=== PATIENT | male | born 1940 | race Caucasian/White ===

== ENCOUNTER 2018-06-07 07:24 | Inpatient (IN) ==
[2018-06-07] MEDS ORDERED: NITROGLYCERIN SL 0.4 MG TABLET SL PRN (09:47)
[2018-06-07 10:43] LABS: Basophils # 0.1 10*3/uL (0.0-0.2); Basophils % 0.7 % (0.0-0.8); Eosinophils # 0.1 10*3/uL (0.0-0.87); Hemoglobin 13.7 GM/DL (14.0-18.0); Immature Granulocytes % 0.1 %; Immature Granulocytes Absolute 0.01 #; Lymphocytes # 2.4 10*3/uL (1.4-4.0); Lymphocytes % 33.6 % (21.2-54.2); Mean Corpuscular HGB Conc 33.4 GM/DL (32-36); Mean Corpuscular Volume 92.1 FL (87-102); Mean Platelet Volume 9.4 FL (9.6-12.0); Monocytes % 7.5 % (1.7-12.7); Neutrophils % 56.1 % (38.7-73.9); Platelet Count 148 T/CUMM (130-400); Red Blood Count 4.45 MC/CUMM (3.8-5.5); Red Cell Distribution Width 13.5 % (9.3-17.3)
[2018-06-07 11:11] LABS: CKMB % 5.5 %
[2018-06-07 11:15] LABS: Troponin I 2.65 NG/ML (0.00-0.045)
[2018-06-07 11:17] LABS: Calcium 8.8 MG/DL (8.5-10.1); Osmolality,Calculated 286.1 MOS/KG (273-304); Thyroid Stimulating Hormone 1.3 uIU/ml (0.358-3.74)
[2018-06-07] MEDS ORDERED: TICAGRELOR 90 MG TABLET PO ONE (11:59)
[2018-06-07] MEDS: PANTOPRAZOLE 40 MG TABLET PO SCH (12:20)
[2018-06-07] MEDS: ASPIRIN EC 81 MG TABLET PO SCH (12:20)
[2018-06-07] MEDS: ENOXAPARIN 80 MG/0.8 ML SYRINGE SUBCUT SCH (12:20)
[2018-06-07 13:29] LABS: Troponin I 4.98 NG/ML (0.00-0.045)
[2018-06-07 14:49] LABS: Apearance,Urine CLEAR (Clear); Bilirubin,Urine Negative (Negative); Blood, Urine Negative (Negative); Glucose,Urine (UA) Negative (Negative); Ketones,Urine Negative (Negative); Mucus,Urine Occasional /LPF (Occasional); Nitrite,Urine Negative (Negative); Protein,Urine Negative; RBC,Urine 1 /HPF (0-4); Urine Color Yellow (Yellow); Urine Specific Gravity 1.009 (1.001-1.035); Urine Urobilinogen < 2.0 EU/DL (0.2-1.0); WBC,Urine <1 /HPF (0-6)
[2018-06-07 16:13] LABS: CKMB % 5.6 %
[2018-06-07 16:16] LABS: Troponin I 6.23 NG/ML (0.00-0.045)
[2018-06-07] MEDS: TICAGRELOR 90 MG TABLET PO SCH (20:40)
[2018-06-07] MEDS: ATORVASTATIN 40 MG TABLET PO SCH (20:40)
[2018-06-08] MEDS: ENOXAPARIN 80 MG/0.8 ML SYRINGE SUBCUT SCH (00:40)
[2018-06-08] MEDS ORDERED: SODIUM CHLORIDE 0.9% 1,000 ML IV SCH (03:00)
[2018-06-08 04:39] LABS: Basophils % 0.7 % (0.0-0.8); Eosinophils # 0.2 10*3/uL (0.0-0.87); Eosinophils % 3.3 % (0.00-10.9); Hemoglobin 13.3 GM/DL (14.0-18.0); Immature Granulocytes % 0.4 %; Immature Granulocytes Absolute 0.02 #; Lymphocytes # 1.8 10*3/uL (1.4-4.0); Lymphocytes % 33.1 % (21.2-54.2); Mean Corpuscular HGB Conc 32.4 GM/DL (32-36); Mean Platelet Volume 9.6 FL (9.6-12.0); Monocytes % 8.2 % (1.7-12.7); Neutrophils % 54.3 % (38.7-73.9); Platelet Count 126 T/CUMM (130-400); Red Blood Count 4.36 MC/CUMM (3.8-5.5); Red Cell Distribution Width 13.6 % (9.3-17.3); White Blood Count 5.5 T/CUMM (4-12)
[2018-06-08 04:50] LABS: Calcium 8.7 MG/DL (8.5-10.1); Osmolality,Calculated 289.8 MOS/KG (273-304)
[2018-06-08] MEDS ORDERED: diphenhydrAMINE CAP 25 MG CAPSULE PO ONE (06:30)
[2018-06-08] MEDS ORDERED: DIAZEPAM 5 MG TABLET PO ONE (06:30)
[2018-06-08] MEDS: ASPIRIN EC 81 MG TABLET PO SCH ×2 (06:36→09:35)
[2018-06-08] MEDS: PANTOPRAZOLE 40 MG TABLET PO SCH ×2 (06:36→09:36)
[2018-06-08] MEDS: TICAGRELOR 90 MG TABLET PO SCH ×3 (06:36→20:41)
[2018-06-08] MEDS: SODIUM CHLORIDE 0.9% 1,000 ML IV SCH ×3 (07:10→20:40)
[2018-06-08] MEDS ORDERED: HEPARIN/NACL 0.9% 2 UNITS/ML 1,000 ML IV ONE (07:17)
[2018-06-08] MEDS ORDERED: LIDOCAINE 1% 20 ML VIAL ONE (07:17)
[2018-06-08] MEDS ORDERED: MIDAZOLAM 2 MG/2 ML VIAL ONE ×2 (07:19→07:50)
[2018-06-08] MEDS ORDERED: fentaNYL 100 MCG/2 ML VIAL ONE (07:19)
[2018-06-08] MEDS ORDERED: ENOXAPARIN 60 MG/0.6 ML SYRINGE ONE (07:25)
[2018-06-08] MEDS ORDERED: NITROGLYCERIN DRIP 50 MG/250 ML BOTTLE IV ONE (07:51)
[2018-06-08] MEDS ORDERED: MORPHINE 4 MG/1 ML VIAL IV PRN (08:11)
[2018-06-08] MEDS ORDERED: ONDANSETRON 4 MG/2 ML VIAL IV PRN (08:11)
[2018-06-08] MEDS ORDERED: ZALEPLON 5 MG CAPSULE PO PRN (08:11)
[2018-06-08] MEDS ORDERED: ACETAMINOPHEN 325 MG TABLET PO PRN (08:11)
[2018-06-08] MEDS: NICOTINE 21 MG/24 HR PATCH TRANSDERM SCH (09:36)
[2018-06-08] MEDS: ATORVASTATIN 40 MG TABLET PO SCH (20:41)
[2018-06-09] MEDS: SODIUM CHLORIDE 0.9% 1,000 ML IV SCH (01:36)
[2018-06-09 05:26] LABS: Basophils % 0.3 % (0.0-0.8); Eosinophils # 0.2 10*3/uL (0.0-0.87); Eosinophils % 2.5 % (0.00-10.9); Hematocrit 39.1 VOL% (42.0-52.0); Hemoglobin 12.8 GM/DL (14.0-18.0); Immature Granulocytes % 0.3 %; Immature Granulocytes Absolute 0.02 #; Lymphocytes # 1.9 10*3/uL (1.4-4.0); Lymphocytes % 27.5 % (21.2-54.2); Mean Corpuscular HGB Conc 32.7 GM/DL (32-36); Mean Corpuscular Volume 92.9 FL (87-102); Mean Platelet Volume 9.5 FL (9.6-12.0); Monocytes % 9.6 % (1.7-12.7); Neutrophils % 59.8 % (38.7-73.9); Platelet Count 124 T/CUMM (130-400); Red Blood Count 4.21 MC/CUMM (3.8-5.5); Red Cell Distribution Width 13.6 % (9.3-17.3); White Blood Count 6.9 T/CUMM (4-12)
[2018-06-09 06:08] LABS: Calcium 8.4 MG/DL (8.5-10.1)
[2018-06-09] MEDS: NICOTINE 21 MG/24 HR PATCH TRANSDERM SCH (08:46)
[2018-06-09] MEDS: ASPIRIN EC 81 MG TABLET PO SCH (08:47)
[2018-06-09] MEDS: PANTOPRAZOLE 40 MG TABLET PO SCH (08:47)
[2018-06-09] MEDS: TICAGRELOR 90 MG TABLET PO SCH ×2 (08:47→21:22)
[2018-06-09] MEDS ORDERED: DOCUSATE SODIUM 100 MG CAPSULE PO PRN (10:35)
[2018-06-09] MEDS: ATORVASTATIN 40 MG TABLET PO SCH (21:21)
[2018-06-10 08:38] VITALS: BP 134/78
[2018-06-10] MEDS: TICAGRELOR 90 MG TABLET PO SCH (09:19)
[2018-06-10] MEDS: NICOTINE 21 MG/24 HR PATCH TRANSDERM SCH (09:19)
[2018-06-10] MEDS: ASPIRIN EC 81 MG TABLET PO SCH (09:20)
[2018-06-10] MEDS: PANTOPRAZOLE 40 MG TABLET PO SCH (09:20)
== END 2018-06-10 14:50 | disposition home or self-care (01) | DRG 247 ==
LOC: N.TELES 09:28 → INTOOBSV 09:28 → SUATTDRO 09:28
PROVIDERS: ADMIT Internal Medicine; ATTEND Hospitalist